=== PATIENT | female | born 1960 | race Caucasian/White ===

== ENCOUNTER 2018-10-06 12:35 | Emergency (ER) | payer OTHER, SELFPAY ==
[2018-10-06 12:35] VITALS: BP 181/89; PULSE 88; RESP 18; TEMP 36.6; O2SAT 99
--- NOTE | 2018-10-06 13:45 | ED.GENADUL_ITS ---
Discharge Plan Disposition Patient Disposition: HOME Condition: Stable Discharge Details Chief Complaint: Nk/Back Pain Clinical Impression: Chronic back pain, Repetitive strain injury of mid back, Sciatica Primary Care Provider: Trinh,Local ED Provider: Milagro Ayon Home Meds and New Rx's Prescriptions: New prednisone 20 mg tablet See Rx Instructions .ROUTE .COMPLEX Qty: 18 RF: 0 lidocaine [Lidoderm] 5 % adhesive patch,medicated 1 patch TP DAILY Qty: 15 RF: 0 methocarbamol [Robaxin-750] 750 mg tablet 750 mg PO QID PRN (Reason: muscle spasm) Qty: 10 RF: 0 Continued valsartan [Diovan] 160 mg Tablet 160 mg PO DAILY RF: 0 ergocalciferol (vitamin D2) [Vitamin D2] 50,000 unit Capsule PO DIRECTED RF: 0 acetaminophen [Tylenol Extra Strength] 500 mg Tablet 1,000 mg PO Q4H PRNRF: 0 Discharge Instructions Instructions: Sciatica (ED), Chronic Back Pain (ED) Additional Instructions: Alternate Tylenol and Motrin as needed and directed for pain. Take the steroids until finished. Use the Robaxin as needed and directed for muscle spasm. Use the Lidoderm patch as directed for pain. Call your employer to discuss Worker's Compensation regarding plan for follow-up for reassessment on return to work. Return to the emergency department if you develop any worsening or new concerning symptoms. Stand Alone Forms: Work Release Discharge Data Discharge Date/Time-TO BE ENTERED AT DEPARTURE: 10/06/18 14:10 Discharge Physician: Milagro Ayon Medical Decision Making 58-year-old female with a history of hypertension who presents with right mid back pain with radiation to right buttock and leg for the past few weeks. 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 No cauda equina symptoms. She has a history of chronic bilateral thigh numbness due to a former injury. Blood pressure hypertensive, otherwise vitals within normal limits. She appears nontoxic. She has tenderness palpation of her right mid back and buttock. No focal deficits. Neurovascularly intact. Appears consistent with chronic muscle strain now with sciatica. She states she has taken ibuprofen and Motrin in the past without reaction. She states she gets a reaction of itching and rash with Aleve. Discussed that this could be due to the coating of Aleve. Will give a dose of prednisone and Lidoderm patch here. She drove herself to the ED. We will send home with prednisone, Robaxin and Lidoderm patch. She is advised to try a low dose of Motrin to see if she tolerates that she has not taken it in years. She is advised to alternate ice and heat, limit excessive movement. We will give a work note. She is advised to follow-up with Worker's Compensation for plans for follow-up and to return here anytime if worse. HPI General Mode of arrival: ambulatory . Date/Time Provider Initiated Documentation: 10/06/18 13:05 . Limitations to Documentation: no limitations . Information obtained by: patient . HPI Narrative: Patient is a 58-year-old female with a history of hypertension and chronic bilateral leg paresthesias due to a prior injury who presents with right mid and lower back pain extending to her right buttock and posterior leg down to her knee for the past several months, now progressively worse. She works in [employer] health and states she has been transferring the same patient twice weekly for the past several months and this is caused a strain on her right mid to lower back. She has taken Tylenol for pain without relief. She has not been seen by a doctor or taken any other medication for this. She denies fever, nausea, vomiting, abdominal pain, leg weakness, bowel or bladder incontinence, saddle anesthesia. Related Data Home Medications Medication Instructions Recorded Confirmed acetaminophen [Tylenol Extra 1,000 mg PO Q4H PRN 10/06/18 10/06/18 Strength] ergocalciferol (vitamin D2) unit PO DIRECTED 10/06/18 [Vitamin D2] lidocaine [Lidoderm] 1 patch TP DAILY #15 each 10/06/18 methocarbamol [Robaxin-750] 750 mg PO QID PRN #10 tab 10/06/18 prednisone See Rx Instructions .ROUTE 10/06/18 .COMPLEX #18 tab valsartan [Diovan] 160 mg PO DAILY 10/06/18 10/06/18 Previous Rx's Medication Instructions Recorded lidocaine [Lidoderm] 1 patch TP DAILY #15 each 10/06/18 methocarbamol [Robaxin-750] 750 mg PO QID PRN #10 tab 10/06/18 prednisone See Rx Instructions .ROUTE 10/06/18 .COMPLEX #18 tab Allergies Allergy/AdvReac Type Severity Reaction Status Date / Time naproxen [From Aleve] Allergy Unverified 10/06/18 12:58 kiwi AdvReac Intermediate throat and Unverified 10/06/18 12:48 face tingling / diarrhea General Stated Complaint: Nk/Back Pain AARON: 3 Review of Systems Review of Systems All systems reviewed & are unremarkable except as noted in HPI and below Constitutional Reports as per HPI, Denies chills and Denies fever(s) Eyes Denies blurry vision ENT Denies dizziness, Denies sore throat and Denies throat swelling Cardiovascular Denies chest pain and Denies dyspnea Respiratory Denies cough and Denies dyspnea Gastrointestinal Denies abdominal pain, Denies diarrhea and Denies vomiting Genitourinary Denies hematuria and Denies dysuria Musculoskeletal Reports back pain and Denies numbness Integumentary/Breasts Denies lesions and Denies rash Neurologic Denies dizziness, Denies focal weakness and Denies numbness Allergic/Immunologic Denies throat swelling PFSH Medical History HTN (hypertension) (Chronic) Paresthesia of both legs (Acute) Surgical History History of appendectomy (Chronic) Social History Smoking/Tobacco Use Status: Current every day Tobacco Type: cigarettes Alcohol Intake: current Alcohol Intake frequency: holidays/special occasions only Alcohol type: wine Drug use: Never Substance use type: does not use Do you feel safe at home: Yes Do you feel safe in your relationship?: Yes Exam Const General: cooperative, healthy appearing and no acute distress [facility] Head: normal to inspection Face and sinus: normal facial exam Eyes General: appearance normal, both eyes and all related structures EOM: EOM intact bilaterally Neck Neck: normal visual inspection and No submandibular swelling Lymphatic: no lymphadenopathy noted Chest Chest: normal inspection of the chest and no tenderness Resp Effort & Inspection: normal respiratory effort and able to speak in complete sentences Auscultation: clear to auscultation bilaterally Cardio Rate: regular rate Rhythm: regular rhythm GI Inspection: normal to inspection Palpation: soft, not firm, not rigid and nontender Auscultation: normal bowel sounds Back/Spine/Pelvis Cervical Spine: No cervical spinal tenderness Thoracic/Lumbar Spine: thoracic and lumbar spine normal to inspection, paraspinal tenderness (R mid-lower lumbar), No thoracic spinal tenderness and No lumbar spinal tenderness Pelvis: no pain with anterior-posterior compression and buttock tenderness on the right Sacroiliac joints: on the right tender to palpation Skin General skin exam: no rashes or lesions noted Neuro General: alert, awake, oriented x3 and gait normal Cognition: normal cognition Speech: speech normal Motor: muscle tone normal throughout and strength 5/5 throughout Sensory Exam: no sensory deficits noted DTR's: Rt Patellar: 1+, Lt Patellar: 1+, Rt Ankle: 1+ and Lt Ankle: 1+ Plantar Reflexes: Equivocal: bilateral (negative babinski b/l ) Extrem General: normal to inspection, full ROM, normal capillary refill, no calf tenderness bilaterally and no edema Other: B/L DP/PT pulses intact Psych Appearance: grossly normal Mental Status: mental status grossly normal Speech and Movement: speech and movement normal Affect: normal affect Course Vital Signs Temperature 97.9 F 10/06/18 12:35 Pulse 88 10/06/18 12:35 Respiratory Rate 18 10/06/18 12:35 Blood Pressure 181/89 H 10/06/18 12:35 Pulse Oximetry 99 10/06/18 12:35 Temperature 97.9 F 10/06/18 12:35 Temperature Source Skin 10/06/18 12:35 Pulse 88 10/06/18 12:35 Respiratory Rate 18 10/06/18 12:35 Respiratory Effort Non-Labored 10/06/18 12:55 Blood Pressure 181/89 H 10/06/18 12:35 Blood Pressure Position Sitting 10/06/18 12:35 Pulse Oximetry 99 10/06/18 12:35 Oxygen Delivery Method Room Air 10/06/18 12:35 Oxygen Flow Rate 0 10/06/18 12:35 Pain Level 10 10/06/18 12:56 Comment 10/06/18 12:35
[2018-10-06] MEDS: Lidocaine 5% Patch 1 PATCH TP (13:57)
[2018-10-06] MEDS: predniSONE 20 MG TAB 60 MG PO (13:57)
--- NOTE | 2018-10-08 17:55 | NUR.NOTE ---
Nursing Note: Patient called stating that she has been taking prednisone since Thu. She now feels nausea, legs and arms like mush and tired. Thinks that she may be having a reaction. Per Dr. Ruvalcaba, does not sound like a reaction, but she can stop the prednisone to see if she feels better. It will not hurt to just stop it. If she feels that she needs to be re-evaluated please return to the ED for follow up. Unable to evaluate over the phone that it is the same problem or something new. Peggy Matson.
== END 2018-10-06 14:10 | disposition home or self-care (01) ==
PROVIDERS: Emergency Provider Physician Assistant
DX: M54.41 Lumbago with sciatica, right side (principal); G89.29 Other chronic pain; S39.012A Strain of muscle, fascia and tendon of lower back, initial encounter; X50.9XXA Other and unspecified overexertion or strenuous movements or postures, initial encounter; I10 Essential (primary) hypertension
CPT/HCPCS: 99283; J7512

== ENCOUNTER 2018-11-19 01:22 | Outpatient (CLI) | payer OTHER, SELFPAY ==
--- NOTE | 2018-11-19 14:24 | DI.MRI_ITS ---
EXAM: MR LUMBAR SPINE WO CLINICAL HISTORY: persistent lumbar pain M54.5. TECHNIQUE: Multiplanar multisequence MRI was performed. COMPARISON: No exams were available for comparison FINDINGS: No significant bony signal abnormality seen in the region surveilled. Incidental note is made of cou ple of small bilateral sacral nerve root cysts. The conus medullaris appears intact. No bony centra l canal spinal stenosis. No significant findings at L1-2. At L2-3, there appears to be an annular tear of the disc with sligh t left paracentral disc herniation. No neural impingement seen. At L3-4, there are no significant findings. At L4-5, there is moderate facet hypertrophy. There is a mild disc bulge. No disc herniation. Neur al foramina appear well maintained. At L5-S1, there is a moderate disc bulge and there are moderate bilateral hypertrophic facet changes. Mild neural foraminal narrowing noted on the left. IMPRESSION: 1. Minimal disc herniation with associated annular tear, left paracentral, at L2-3. 2. Left-sided neural foraminal narrowing at L5-S1
== END 2018-11-19 01:42 ==
PROVIDERS: PCP Nurse Practitioner Family; Visit Provider Nurse Practitioner Family
DX: M54.5 Low back pain (principal); M51.27 Other intervertebral disc displacement, lumbosacral region; M99.53 Intervertebral disc stenosis of neural canal of lumbar region
CPT/HCPCS: 72148

== ENCOUNTER 2019-03-29 11:08 | Outpatient (CLI) | payer OTHER, SELFPAY ==
--- NOTE | 2019-03-29 11:11 | PDOC.PAIN_ITS ---
Pain Clinic Procedure Note Procedure Note Procedure Note: Lumbar/Sacral Medial Branch Blocks ASHLYN ADEN has been referred to the [facility] for lumbar/sacral medial branch blocks. pre-operative diagnosis: lumbar spondylosis post-operative diagnosis: same as above COMMENTS: patient has axial back pain due to facet arthropathy. She has been evaluated by Ms Williamson Patient was interviewed and the medical record reviewed. There were no medical, pharmacologic, radiographic or other structural contraindications to attempting fluoroscopically guided local anesthetic lumbar/sacral medial branch blocks. Risks and expected side effects as well as potential benefit of the procedure were reviewed and voiced concerns addressed. The printed consent form was signed and witnessed. Standard time-out procedure was performed. Patient was placed in the prone position on the fluoroscopy table and automated blood pressure cuff and pulse oximeter applied. The skin entry points for approaching the anatomic target points of the segmental medial branches of bilateral L3, L4, L5-DR were identified with anfluoroscopy and marked. Following thorough Chlorhexadine preparation of the skin and draping and 1% lidocaine infiltration of the skin entry points and subcutaneous tissues, a 25 3.5'' gauge spinal needle was placed under fluoroscopic guidance down on to the target point for each respective segmental medial branch.Position was confirmed in A/P, oblique and lateral views with 0.25ml of omnipaque 240. Coult be this method .5ml 0.5% Bupivacaine was injected. Vital signs were stable throughout the procedure and were as recorded in the docflowsheet by the nursing staff. Follow up plans and appointments were discussed and was instructed to keep careful note of how the usual pain was modified by these injections. Specifical ly was asked to keep a pain diary for the next 24 hours using a numeric pain scale of 0-10 and report these results at the follow-up visit. Post procedure instruction was given as documented in the nursing documentation and having met discharge criteria. Patient was discharged from the [facility]. Based on the medial branches blocked today, if the patient has adequate relief and we are able to proceed to radiofrequency ablation, the treatment should result in the denervation of the bilateral L4-5 and L5-S1 facets. We would expect to denervate a total of 4 facets during the radiofrequency ablation. COMMENTS: patient toleratd procedure well without issue. Next procedure, would recommend 22 gauge 5'' spinal needles, given today's procedure, 3.5'' spinal needle (25 gauge) was at hub. Gilbert Fish MD Pain Management CC: Usha Flowers, SURVEYOR CHAIN HELPER
[2019-03-29 11:42] VITALS: BP 154/99; PULSE 89; RESP 18; TEMP 36.8; O2SAT 98
[2019-03-29 12:18] VITALS: BP 157/96; PULSE 93; RESP 20; O2SAT 97
[2019-03-29] MEDS: Omnipaque 240 MG/ML 50 ML BTL IJ (12:22)
[2019-03-29] MEDS: Bupivacaine 0.5% Pres-Free 10 ML VIAL IJ (12:23)
--- NOTE | 2019-03-29 13:07 | DI.RAD_ITS ---
EXAM: XR PAIN CLINIC LUMBAR SP 2V CLINICAL HISTORY: Dx: lumbar spondylosis. TECHNIQUE: Fluoroscopy was provided for the referring physician for guidance with performing injecti on procedure. COMPARISON: No exams were available for comparison FINDINGS: Please see procedure note for details. Fluoro time: 62.9 s, 18.57 mGy
== END 2019-03-29 11:28 ==
PROVIDERS: PCP Nurse Practitioner Family; Visit Provider Internal Medicine
DX: M47.816 Spondylosis without myelopathy or radiculopathy, lumbar region (principal)
CPT/HCPCS: 64493; 64494; 72100; Q9967

== ENCOUNTER 2019-07-21 07:21 | Outpatient (CLI) | payer OTHER, SELFPAY ==
--- NOTE | 2019-07-21 06:00 | DI.RAD_ITS ---
EXAM: XR PAIN CLINIC LUMBAR SP 2V CLINICAL HISTORY: Dx:Lumbar Spondylosis,LUMBAR RADIOFREQUENCY ABLATION TECHNIQUE: 2D and realtime digital imaging was performed. Fluoroscopy was provided in the OR COMPARISON: No exams were available for comparison FINDINGS: C-arm fluoroscopy is utilized by Dr. Carlin during reported radiofrequency ablation. Hard copy show ne edles overlying the facet joints at what appears to be L3-4, L4-5, and L5-S1 on the left and at L3-4 and L4-5 on the right. Please see Dr. Carlin's procedure note. Fluoro time 79.9 seconds RADIATION DOSE DELIVERED: Total DLP
[2019-07-21 07:35] VITALS: BP 149/87; PULSE 90; RESP 17; TEMP 36.8; O2SAT 97
[2019-07-21] MEDS: Lactated Ringers 1,000 ML 80 ML IV (08:34)
[2019-07-21] MEDS: Midazolam 2 MG/2 ML VIAL IVP (08:39)
[2019-07-21] MEDS: fentaNYL 100 MCG/2 ML VIAL IVP ×2 (08:39→08:42)
[2019-07-21 09:16] VITALS: BP 148/91; PULSE 90; RESP 25; O2SAT 96
--- NOTE | 2019-07-21 09:21 | PDOC.PAIN_ITS ---
Pain Clinic Procedure Note Procedure Note Procedure Note: LUMBAR/SACRAL MEDIAL BRANCH RADIOFREQUENCY with the Coolief machine ASHLYN ADEN has been referred to the [facility] for radiofrequency treatment of chronic axial back pain. ASHLYN has had long standing back pain thought to be facet joint generated and which has been refractory to other therapies. Local anesthetic medial branch blocks or intra- articular facet joint injections resulted in ASHLYN reporting reduction of the usual axial component of pain for at least the duration of the local anesthetic effect. COMMENTS: Excellent relief with an LMBB at bilateral L3-L5DR on 03/29/19. I did decided to add the bilateral S1 lateral branches to this RFA as a way to get potential improvement in the denervation of the L5-S1 facet joint without any added cost. DX: Lumbosacral spondylosis without myelopathy Patient was interviewed and the medical record reviewed. There were no medical, pharmacologic, radiographic or other structural contraindications to attempting fluoroscopically guided radiofrequency treatment. Risks and expected side effects as well as potential benefit of the procedure were reviewed and voiced concerns addressed. The printed consent form was signed and witnessed. Standard time-out procedure was performed. Patient was placed in the prone position on the fluoroscopy table and automated blood pressure cuff and pulse oximeter applied. The skin entry points for approaching the anatomic target points of the segmental medial branches of bilateral L3-L5DR and bilateral S1 lateral branches were identified with fluoroscopy and marked. Following thorough Chlorhexadine preparation of the skin and draping and 1% lidocaine infiltration of the skin entry points and subcutaneous tissues, a single Coolief 100 mm radiofrequency cannula was placed under fluoroscopic guidance along or across the anatomic course of each respective segmental medial branch. Each placement was stimulated at 50Hz and les then 0.5V for medial branch sensory localization without any evidence of distal myotomal stimulation. 1cc of 1% ;idocaine was injected at each site. At each placement a continuous mode radiofrequency treatment was done at 80 degrees C for 90secs. I did inject 1/8 of a mixture of 1 cc of Depomedrol (40 mg/cc) and 1 cc of 0.5% Bupivacaine to each segmental nerve area after the RFA. This radiofrequency treatment should result in the denervation of the bilateral L4-L5 and L5-S1 FACET JOINTS. A total of 4 facets were expected to be denervated from today's treatment. Vital signs were stable throughout the procedure and were as recorded in the docflowsheet by the nursing staff. If given, dosages of intravenous drugs for anxiolysis and analgesia were documented in the Medication Administration Record (MAR). Follow up plans and appointments were discussed. Post procedure instruction was given as documented in the nursing documentation and having met discharge criteria, ASHLYN was discharged from the Pain Management Center. COMMENTS: She did excellent with the procedure. I gave her a total of 50 mcg of Fentanyl and 1 mg of Versed IV during the procedure. CC: Usha Flowers NP
[2019-07-21] MEDS: Bupivacaine 0.5% Pres-Free 10 ML VIAL IJ (09:26)
[2019-07-21] MEDS: Lidocaine 1% Pres-Free 5 ML VIAL IJ (09:27)
[2019-07-21] MEDS: Lidocaine 2% Pres-Free 5 ML VIAL IJ (09:27)
[2019-07-21] MEDS: methylPREDNISolone ACETATE 40 MG/ML VIAL IJ (09:28)
== END 2019-07-21 07:41 ==
PROVIDERS: PCP Nurse Practitioner Family; Visit Provider Preventive Medicine Occupational Medicine
DX: M47.816 Spondylosis without myelopathy or radiculopathy, lumbar region (principal)
CPT/HCPCS: 64635; 64636; 72100; J1030; J2250; J3010

== ENCOUNTER 2019-09-20 12:40 | Outpatient (CLI) | payer OTHER, SELFPAY ==
[2019-09-20 13:17] VITALS: BP 140/85; PULSE 93; RESP 16; TEMP 37.2; O2SAT 97
--- NOTE | 2019-09-20 13:50 | PDOC.PAIN ---
Pain Clinic Procedure Note Procedure Note Procedure Note: Lumbar Epidural Steroid Injection Procedure Note Pre-operative diagnosis: right sided lumbar radiculopathy Post-operative diagnosis: same as above COMMENTS:patient was recently evaluated by Ms Lyla Sanchez APRN and she reported lower back pain radiating down right buttock, hip and posterior knee. She is referred for a L5-S1 LESI for symptomatic relief. patient has a listed allergy to prednisone - she reports nausea after her most recent RFA treatment at which time she received depomedrol 40mg to prevent post-RF neuritis, of note, patient also received IV anxiolysis including IV versed and Fentanyl - pt denies any other side effects besides nauesa. Decision was made to proceed with using non-particulate steroid dexamethasone. ASHLYN ADEN has been referred to the [facility] for lumbar epidural steroid injection. The patient was greeted by the nurse who verified patients name and . Patient was then taken to the fluoroscopy suite. The patient was interviewed and the medial record reviewed. There were no medical, pharmacologic, radiographic, or other structural contraindications to attempting fluoroscopically guided lumbar epidural steroid injection. Risks and expected side effects as well as potential benefits of the procedure were reviewed and voiced concerns expressed. The patient consent form was signed and witnessed. Standard patient time-out procedure was performed. The patient was placed in the prone position on the fluoroscopy table and automated blood pressure cuff and pulse oximeter applied. The skin entry point for entering/approaching the epidural space by a L5-S1 and marked. Following thorough chlorhexadine preparation of the skin and draping and 1% lidocaine infiltration of the skin entry point and subcutaneous tissues, a 18 gauge Touhy needle was placed under fluoroscopic guidance and with loss of resistance technique into the epidural space. Needle tip placement and depth were aided and confirmed by fluoroscopy. There was no paresthesia or return of blood or CSF through the needle. 1 cc's of Omnipaque 240 was injected with clear epidural spread confirmed with fluoroscopy. 15mg preserveative free dexamethasone was injected. This was followed by 0.5cc of preservative free 1% lidocaine and 1cc of preservative free normal saline. There was not any unusual discomfort expressed by ASHLYN ADEN. Patient's vital signs were stable throughout the procedure and were as recorded in nursing records. Follow up plans and appointments were discussed with patient. Post procedure instruction was given as documented in nursing records and having met discharge criteria and was discharged from the Pain Management Center. COMMENTS: If this procedure is helpful, it can be completed up to 3 times per 12 months. I personally performed the entire procedure. Gilbert Fish MD Pain Management
[2019-09-20] MEDS: Dexamethasone Sod. Phos./Pres-Free 10 MG/ML VIAL IJ (13:51)
[2019-09-20] MEDS: Omnipaque 240 MG/ML 50 ML BTL IJ (13:51)
--- NOTE | 2019-09-20 13:55 | DI.RAD_ITS ---
EXAM: XR PAIN CLINIC LUMBAR SP 2V CLINICAL HISTORY: Dx: Lumbar Radiculopathy, EPIDURAL STEROID INJECTION TECHNIQUE: 2D and realtime digital imaging was performed. Fluoroscopy was provided in the OR COMPARISON: No exams were available for comparison FINDINGS: C-arm fluoroscopy was utilized by Dr. Fish during lumbar epidural steroid injection. Hard copy shows i njection just to the left of midline at the L5-S1 level. Fluoro time, 13 seconds. IMPRESSION: RADIATION DOSE DELIVERED: Total DLP
[2019-09-20 14:04] VITALS: BP 160/73; PULSE 97; RESP 22; O2SAT 98
== END 2019-09-20 13:00 ==
PROVIDERS: PCP Nurse Practitioner Family; Visit Provider Internal Medicine
DX: M54.16 Radiculopathy, lumbar region (principal)
CPT/HCPCS: 62323; 72100; Q9967

== ENCOUNTER 2019-12-06 07:31 | Outpatient (CLI) | payer OTHER, SELFPAY ==
[2019-12-06 07:54] VITALS: BP 144/78; PULSE 95; RESP 17; TEMP 37; O2SAT 95
[2019-12-06] MEDS: Omnipaque 240 MG/ML 50 ML BTL IJ (08:34)
--- NOTE | 2019-12-06 08:34 | DI.RAD_ITS ---
EXAM: XR PAIN CLINIC LUMBAR SP 2V CLINICAL HISTORY: Dx: Lumbar Radiculopathy,LUMBAR EPIDURAL STEROID INJECTION TECHNIQUE: Fluoroscopy was provided for the referring physician for guidance with performing injecti on procedure. COMPARISON: No exams were available for comparison FINDINGS: Please see procedure note for details. Fluoro time: 20.5 seconds RADIATION DOSE DELIVERED:
--- NOTE | 2019-12-06 08:34 | PDOC.PAIN ---
Pain Clinic Procedure Note Procedure Note Procedure Note: Lumbar Epidural Steroid Injection Procedure Note pre-operative diagnosis: lumbar radiculopathy post-operative diagnosis: same as above COMMENTS: patient sustained work related injury that resulted in back pain and some leg symptoms. she received 7-8 weeks of excellent pain relief from previous LESI. she reports right sided low back pain that is described as dull ache that is functionally limiting her to vacumm etc. After seeing Ms Lyla MOHAN Sanchez in our pain clinic and occupational medicine provider, it was recommended for her to have a repeat LESI. ASHLYN ADEN has been referred to the Pain Management Center for lumbar epidural steroid injection. The patient was greeted by the nurse who verified patients name and . Patient was then taken to the fluoroscopy suite. The patient was interviewed and the medial record reviewed. There were no medical, pharmacologic, radiographic, or other structural contraindications to attempting fluoroscopically guided lumbar epidural steroid injection. Risks and expected side effects as well as potential benefits of the procedure were reviewed and voiced concerns expressed. The patient consent form was signed and witnessed. Standard patient time-out procedure was performed. The patient was placed in the prone position on the fluoroscopy table and automated blood pressure cuff and pulse oximeter applied. The skin entry point for entering/approaching the epidural space by a L5-S1 and marked. Following thorough chlorhexadine preparation of the skin and draping and 1% lidocaine infiltration of the skin entry point and subcutaneous tissues, a 18 gauge Touhy needle was placed under fluoroscopic guidance and with loss of resistance technique into the epidural space. Needle tip placement and depth were aided and confirmed by fluoroscopy. There was no paresthesia or return of blood or CSF through the needle. 1 cc's of Omnipaque 240 was injected with clear epidural spread confirmed with fluoroscopy. 80mg depomedrol was injected. There was not any unusual discomfort expressed by ASHLYN ADEN. Patient's vital signs were stable throughout the procedure and were as recorded in nursing records. Follow up plans and appointments were discussed with patient. Post procedure instruction was given as documented in nursing records and having met discharge criteria and was discharged from the Pain Management Center. COMMENTS: If this procedure is helpful, it can be completed up to 3 times per 12 months. If it fails to provide adequate pain relief, would recommend clinic FUV to r/o other pain generators. Gilbert Fish MD Pain Management
[2019-12-06] MEDS: methylPREDNISolone ACETATE 80 MG/ML VIAL IJ (08:35)
[2019-12-06 08:36] VITALS: BP 168/89; PULSE 88; RESP 22; O2SAT 95
== END 2019-12-06 07:51 ==
PROVIDERS: PCP Nurse Practitioner Family; Visit Provider Internal Medicine
DX: M54.16 Radiculopathy, lumbar region (principal)
CPT/HCPCS: 62323; 72100; J1040; Q9967

== ENCOUNTER 2020-01-27 01:59 | Outpatient (CLI) | payer OTHER, SELFPAY ==
--- NOTE | 2020-01-27 06:45 | DI.MRI_ITS ---
EXAM: MR LUMBAR SPINE WO CLINICAL HISTORY: Increased LOW BACK PAIN,M54.5,WITH RADICULOPATHY. TECHNIQUE: Multiplanar multisequence MRI of the Lumbar spine was performed. COMPARISON: No exams were available for comparison FINDINGS: Bones: The last intervertebral disc space is designated the L5/S1 level for the numbering purpose of this examination. The vertebral body heights are well maintained. Alignment is satisfactory. The ma rrow signal characteristics are unremarkable.Small endplate osteophytes are seen at multiple levels. The disk heights are maintained. Nerve root sheath cysts are seen at the S2 level. Cord: The conus tip ends at the T12-L1 level. It is of normal size and signal intensity.No central canal stenosis. T11-12: Left sided facet degenerative changes cause moderate to severe neural foraminal narrowing. N o central canal stenosis. T12-L1: No disc herniations or bulges are present. No significant neural foraminal narrowing.No cent ral canal stenosis. L1-2: No disc herniations or bulges are present. No significant neural foraminal narrowing.No centr al canal stenosis. L2-3: No disc herniation. Mild disk bulging. Mild facet degenerative changes. No significant neural foraminal narrowing.No significant central canal stenosis. L3-4: No disc herniation. Mild disk bulging eccentric towards the left causing moderate neural arelis inal narrowing.Mild facet degenerative changes.No central canal stenosis. L4-5: No disc herniations or bulges are present. Mild facet degenerative changes.No significant neur al foraminal narrowing.No central canal stenosis. L5-S1: There are disk osteophytes eccentric towards the left and facet joint degenerative changes cau sing moderate to severe neural foraminal narrowing. No central canal stenosis. Soft tissues: The paraspinal soft tissues are unremarkable. IMPRESSION: No evidence of significant spinal stenosis or disk herniation. Neural foraminal narrowing greatest a t T11-12 and L5-S1 on the left. DATA REPOSITORY:
== END 2020-01-27 02:19 ==
PROVIDERS: PCP Nurse Practitioner Family; Visit Provider Nurse Practitioner Family
DX: M99.52 Intervertebral disc stenosis of neural canal of thoracic region (principal); M99.53 Intervertebral disc stenosis of neural canal of lumbar region; M54.5 Low back pain; M54.16 Radiculopathy, lumbar region
CPT/HCPCS: 72148

== ENCOUNTER 2020-04-12 18:58 | Outpatient (CLI) | payer OTHER, SELFPAY ==
--- NOTE | 2020-04-12 12:00 | DI.RAD_ITS ---
EXAM: XR HIP RT COMPLETE AP PELVIS CLINICAL HISTORY: right hip pain and weakness, M25.551. TECHNIQUE: 2D digital imaging was performed. COMPARISON: No exams were available for comparison FINDINGS: No evidence of pelvic nor right hip fracture. On the left side there is an osteophytic density parallel to the cortical surface of the lesser troch anter of the left hip consistent with no pulsion injury at the attachment site of the ileo psoas tend on at this level. This does not appear acute. Similar finding is not seen on the opposite-right omar e. The views of the right hip appear unremarkable. IMPRESSION: DATA REPOSITORY: RADIATION DOSE DELIVERED:
== END 2020-04-12 18:59 ==
LOC: DI 18:59
PROVIDERS: PCP Nurse Practitioner Family; Visit Provider Nurse Practitioner Family
DX: M25.551 Pain in right hip (principal)
CPT/HCPCS: 73502